=== PATIENT | male | born 1995 | race Caucasian/White ===

== ENCOUNTER 2018-01-14 13:28 | Emergency (ER) | payer OTHER ==
--- NOTE | 2018-01-14 15:00 | EDPHY ---
H & P Time Seen by Provider: 01/14/18 14:45 HPI/ROS: CHIEF COMPLAINT: Glendo teeth bleeding HISTORY OF PRESENT ILLNESS: Patient is a 23-year-old male who presents emergency department with ongoing oozing from his wisdom tooth extraction site. The patient had 4 wisdom teeth extracted this morning in [place] by Dr. Gardner. The since the procedure the patient has had mild Catracho-Aid color bleeding. Patient feels as though he may have a fever. He has had some slight chills. Patient does not have significant pain. He has mild swelling. No difficulty breathing. Patient states he swallowing without difficulty. REVIEW OF SYSTEMS: 10 systems were reveiwed and are negative with the exception of the elements mentioned in the history of present illness. Past Medical/Surgical History: Includes compartment syndrome Smoking Status: Current every day smoker Physical Exam: 36.7, 143/91, 65, 16, 98% on room air GENERAL: No acute distress, alert. HEENT: Eyes normal to inspection. The patient has full with into the extraction sites appear normal. There is no surrounding erythema. No significant discharge or bleeding. No notable swelling. Uvula is midline. Pharynx is normal. NECK: Normal, supple. RESPIRATORY: Clear to auscultation bilaterally, no rales, rhonchi or wheezing. CVS: Regular rate and rhythm, no rubs, murmurs, or gallops. ABDOMEN: Soft, nontender. SKIN: Normal color, no rash, warm, dry. No pallor. EXTREMITIES: Normal appearing. NEURO/PSYCH: Alert and oriented, normal mood and affect. No obvious cranial nerve deficit. Constitutional: Initial Vital Signs Temperature (C) 36.7 C 01/14/18 13:31 Heart Rate 65 01/14/18 13:31 Respiratory Rate 16 01/14/18 13:31 Blood Pressure 143/91 H 01/14/18 13:31 O2 Sat (%) 98 01/14/18 13:31 O2 Delivery Mode Room Air Allergies/Adverse Reactions: No Known Allergies Allergy (Unverified 01/14/18 13:34) Home Medications: Medication Instructions Recorded Ibuprofen 01/14/18 Welch 5-325 Tablet 01/14/18 Medical Decision Making ED Course/Re-evaluation: In the emergency department I discussed possible etiologies with the patient. I answered all his questions. At this time I do not feel he is having a significant complication from his wisdom tooth removal. I felt this was normal discharge postprocedure. I did review the patient's entire volume of gauze since the procedure and there was not significant blood present. Patient was given warnings. He follow-up with his oral surgeon. Differential Diagnosis: My differential includes but is not limited to post surgical bleeding, infection , anemia, sepsis, foreign body Departure - Departure Disposition: Home, Routine, Self-Care Clinical Impression: Glendo teeth removed Qualifiers: Tooth loss class: unspecified tooth loss Qualified Code(s): K08.409 - Partial loss of teeth, unspecified cause, unspecified class Condition: Good Instructions: Tooth Extraction (DC) Additional Instructions: Sleep with your head of bed elevated. Apply ice to your cheeks. Return with worsening symptoms or concerns. Referrals: Kendra Pearson [Other] - 2-3 days, if not improved
[2018-01-14 15:11] VITALS: BP 137/77
== END 2018-01-14 15:05 | disposition home or self-care (01) ==
DX: Z98.818 Other dental procedure status (principal); F17.200 Nicotine dependence, unspecified, uncomplicated

== ENCOUNTER 2018-02-24 05:49 | Emergency (ER) | payer BC, OTHER ==
[2018-02-24 06:09] VITALS: BP 131/68
[2018-02-24] MEDS ORDERED: IPRATROPIUM/ALBUTEROL 3 ML DEYVIAL ONE (06:54)
[2018-02-24] MEDS ORDERED: IPRATROPIUM/ALBUTEROL 3 ML DEYVIAL IH ONE (06:55)
--- NOTE | 2018-02-24 07:05 | EDPHY ---
H & P Stated Complaint: 30MIN: INHALED WATER FROM A BONG, THEN FELL AND HIT FACE, NO LOC Time Seen by Provider: 02/24/18 06:44 - Personal History Current Tetanus/Diphtheria Vaccine: Yes - Medical/Surgical History Hx Asthma: No Hx Chronic Respiratory Disease: No Hx Diabetes: No Hx Cardiac Disease: No Hx Renal Disease: No Hx Cirrhosis: No Hx Alcoholism: No Hx HIV/AIDS: No Hx Splenectomy or Spleen Trauma: No Other PMH: compartment syndrome LUE - Social History Smoking Status: Current every day smoker Constitutional: Initial Vital Signs Heart Rate 80 02/24/18 06:05 Respiratory Rate 18 02/24/18 06:05 Blood Pressure 131/68 H 02/24/18 06:05 O2 Sat (%) 98 02/24/18 06:05 O2 Delivery Mode Room Air Allergies/Adverse Reactions: No Known Allergies Allergy (Unverified 02/24/18 06:04) Medical Decision Making ED Course/Re-evaluation: CHIEF COMPLAINT: Inhaled Bong water HISTORY OF PRESENT ILLNESS: 23-year-old male who was doing a bong hit this morning when he inhaled the bong water. He states that he isn't change the bong water very frequently. It was black in fact. He did cough several times. His girlfriend witnessed the event. He came here to get checked out. He feels like his breathing is almost back to normal. He denies any respiratory distress. He thinks he may have swallowed some also. REVIEW OF SYSTEMS: A comprehensive 10 system review of systems is otherwise negative aside from elements mentioned in the history of present illness and medical decision making. PHYSICAL EXAM: HR, BP, O2 Sat, RR. Temp noted General Appearance: Alert, well hydrated, appropriate, and non-toxic appearing. Head: Atraumatic without scalp tenderness or obvious injury Eyes: Pupils equal, round, reactive to light and accommodation, EOMI, no trauma , no injection. Ears: Clear bilaterally, no perforation, normal landmarks Nose: Atraumatic, no rhinorrhea, clear. Throat: There is no erythema or exudates, no lesions, normal tonsils, mucus membranes moist. Neck: Supple, 2+ carotid upstroke, nontender, no lymphadenopathy. Respiratory: No retractions, no distress, no wheezes, and no accessory muscle use. Lungs are clear to auscultation bilaterally. Cardiovascular: Regular rate and rhythm, no murmurs, rubs, or gallops. Bilateral carotid, radial, dorsalis pedis, and posterior tibial pulses intact. Good capillary refill all extremities. Gastrointestinal: Abdomen is soft, nontender, non-distended, no masses, no rebound, no guarding, no peritoneal signs. Musculoskeletal: Normal active ROM of all extremities, atraumatic. Neurological: Alert, appropriate, and interactive. The patient has normal DTRs and non-focal cranial nerves, motor, sensory, and cerebellar exam. Skin: No rashes, good turgor, no nodules on palpation. Past medical history: None Past surgical history: None Family history: Noncontributory Social history: Single, employed, does not use tobacco, uses marijuana regularly DIAGNOSTICS/PROCEDURES/CRITICAL CARE TIME: Not indicated DIFFERENTIAL DIAGNOSIS: Includes but is not limited to: Aspiration, pneumothorax, oropharyngeal injury, contaminant exposure to the trachea MEDICAL DECISION MAKIN-year-old who inhaled dirty bong water. He is back to normal now. He has a completely normal exam. He received a duo nebulizer treatment and does not warrant a chest x-ray. I warned him that if he should get more ill due to the contaminant in the bong water he may need to see us again. I have also recommended that he not smoke marijuana so frequently. 7:15 AM - I spoke with the patient and his father, an orthopedic surgeon in [place]. His father requested a drug screen and the patient agreed. The patient has authorized me to discuss the results of his drug screen and workup today with his father. He does not need to wait here for results as they will not effect his treatment today so I will call both with results when available. - Data Points Laboratory Results: 02/24/18 07:21 Urine Opiates Screen NEGATIVE (NEGATIVE) Urine Barbiturates NEGATIVE (NEGATIVE) Ur Phencyclidine Scrn NEGATIVE (NEGATIVE) Ur Amphetamine Screen NEGATIVE (NEGATIVE) U Benzodiazepines Scrn NEGATIVE (NEGATIVE) Urine Cocaine Screen NEGATIVE (NEGATIVE) U Marijuana (THC) Screen NEGATIVE (NEGATIVE) Medications Given: Discontinued Medications Albuterol/Ipratropium (Duoneb) 3 ml IH EDNOW ONE Stop: 02/24/18 06:56 Last Admin: 02/24/18 06:58 Dose: 3 ml Departure - Departure Disposition: Home, Routine, Self-Care Clinical Impression: Aspiration into respiratory tract Qualifiers: Encounter type: initial encounter Qualified Code(s): T17.908A - Unspecified foreign body in respiratory tract, part unspecified causing other injury, initial encounter Condition: Good Referrals: NONE *PRIMARY CARE P,. [Primary Care Provider] - As per Instructions Omar Bernard MD [Medical Doctor] - As per Instructions
== END 2018-02-24 07:23 | disposition home or self-care (01) ==
DX: T17.908A Unspecified foreign body in respiratory tract, part unspecified causing other injury, initial encounter (principal); Y92.9 Unspecified place or not applicable
CPT/HCPCS: 80305